=== PATIENT | female | born 1985 | race Caucasian/White ===

== ENCOUNTER 2016-12-29 18:20 | Inpatient (IN) | payer MEDICAID, OTHER ==
[~2016-12-29] VITALS: Ht 160 cm; Wt 76.8 kg
[2016-12-29 21:48] LABS: BASOPHILS % (AUTO) 0.5 % (0.0-2.0); EOSINOPHILS % (AUTO) 1.3 % (1.0-6.0); HEMATOCRIT 44.1 % (36-46); HEMOGLOBIN 14.4 g/dL (12.0-16.0); LYMPHOCYTES # (AUTO) 3.2 K/uL (1.0-4.8); LYMPHOCYTES % (AUTO) 35.8 % (22.0-44.0); MEAN CORPUSCULAR HEMOGLOBIN 30.4 pg (26.0-34.0); MEAN CORPUSCULAR HGB CONC 32.6 G/dL (31.0-37.0); MEAN CORPUSCULAR VOLUME 93 fL (80-100); MONOCYTES # (AUTO) 0.5 K/uL (0.1-1.0); MONOCYTES % (AUTO) 5.8 % (2.0-9.0); NEUTROPHILS # (AUTO) 5.1 K/uL (1.8-7.7); NEUTROPHILS % (AUTO) 56.6 % (40.0-70.0); PLATELET COUNT (AUTO) 272 K/uL (150-450); RED BLOOD CELL COUNT(AUTO) 4.73 MIL/uL (4.00-5.20); RED CELL DISTRIBUTION WIDTH 13.5 % (11.5-14.5)
[2016-12-29 21:57] LABS: ANION GAP 10 mmol/L (8-16); CALCIUM, TOTAL 8.6 mg/dL (8.8-10.5); CARBON DIOXIDE 27 mmol/L (22-29); CHLORIDE 105 mmol/L (98-107); CREATININE 0.86 mg/dL (0.60-1.30); GLOMERULAR FILTR. RATE CALC > 60 mL/min (>60); SODIUM SERUM 142 mmol/L (136-145); UREA NITROGEN, BLOOD 15 mg/dL (7-18)
[2016-12-29 22:02] LABS: ALANINE AMINOTRANSFERASE 20 U/L (12-78); ALBUMIN 3.5 g/dL (3.4-5.0); ASPARTATE AMINOTRANSFERASE 20 U/L (15-37); BILIRUBIN,TOTAL 0.4 mg/dL (0.1-1.0)
[2016-12-29] MEDS ORDERED: LORazepam 2 MG TABLET PO ONE (22:30)
[2016-12-29] MEDS ORDERED: ZOLPIDEM TARTRATE 10 MG TABLET PO PRN (23:30)
[2016-12-29] MEDS ORDERED: HALOPERIDOL 5 MG TABLET PO PRN (23:30)
[2016-12-30 01:13] VITALS: BP 116/75
[2016-12-30] MEDS: LITHIUM CARBONATE 300 MG CAPSULE PO SCH ×2 (10:16→16:43)
[2016-12-30 13:53] VITALS: BP 106/71
[2016-12-30 16:00] VITALS: BP 123/84
[2016-12-30 17:23] VITALS: BP 123/84
[2016-12-30] MEDS ORDERED: ACETAMINOPHEN 325 MG TABLET PO PRN (21:30)
[2016-12-30] MEDS ORDERED: IBUPROFEN 400 MG TABLET PO PRN (21:30)
[2016-12-30] MEDS: LORazepam 2 MG TABLET PO PRN (21:40)
[2016-12-31 07:05] VITALS: BP 121/71
[2016-12-31 08:14] LABS: HEMOGLOBIN A1C 5.2 % (4.5-6.2)
[2016-12-31 08:20] VITALS: BP 101/64
[2016-12-31 08:35] LABS: CHOL/HDL RATIO 2.8 (3.9-5.7); THYROID STIMULATING HORMONE 2.19 uIU/mL (0.36-3.74)
[2016-12-31] MEDS: LITHIUM CARBONATE 300 MG CAPSULE PO SCH ×2 (08:58→16:46)
[2016-12-31 16:36] VITALS: BP 113/78
[2016-12-31] MEDS: LORazepam 2 MG TABLET PO PRN (21:23)
[2017-01-01 05:43] VITALS: BP 121/77
[2017-01-01] MEDS: LITHIUM CARBONATE 300 MG CAPSULE PO SCH (08:35)
[2017-01-01] MEDS ORDERED: LITH300C3 PO (10:18)
== END 2017-01-01 13:00 | disposition home or self-care (01) | DRG 754 ==
LOC: EMS 18:22 → B3A 23:00
PROVIDERS: ADMIT Psychiatry & Neurology Psychiatry; ATTEND Psychiatry & Neurology Psychiatry
DX: F32.9 Major depressive disorder, single episode, unspecified (principal); R45.851 Suicidal ideations; F41.9 Anxiety disorder, unspecified; R00.0 Tachycardia, unspecified; F22 Delusional disorders; Z79.899 Other long term (current) drug therapy; Z85.72 Personal history of non-Hodgkin lymphomas
CPT/HCPCS: 83036; 84443; 99285; G0480

== ENCOUNTER 2017-12-25 17:01 | Emergency (ER) | payer MEDICAID, OTHER ==
[~2017-12-25] VITALS: Ht 160 cm; Wt 75.5 kg
[~2017-12-25 17:01] MED LIST: LITH300C3 PO
[2017-12-25 17:59] LABS: APPEARANCE,URINE CLOUDY (CLEAR); BILIRUBIN,URINE NEGATIVE (NEGATIVE); GLUCOSE, URINE (UA) NEGATIVE (NEGATIVE); KETONES,URINE TRACE mg/dL (NEGATIVE); LEUKOCYTE ESTERASE ,URINE NEGATIVE (NEGATIVE); NITRATE,URINE POSITIVE (NEGATIVE); OCCULT BLOOD,URINE NEGATIVE (NEGATIVE); PROTEIN,URINE NEGATIVE (NEGATIVE); UROBILINOGEN,URINE 0.2 mg/dL (<=1.0)
[2017-12-25 19:10] LABS: BACTERIA,URINE Many /HPF (None Seen); RBC,URINE None Seen /HPF (0-2); WBC,URINE 0-2 /HPF (0-5)
[2017-12-25 19:11] LABS: SQUAMOUS EPITHELIAL CELL,UR Moderate /LPF (None Seen)
[2017-12-25 19:41] VITALS: BP 122/96
[2017-12-25] MEDS ORDERED: CIPROFLOXACIN HCL 250 MG TABLET PO ONE (19:45)
[2017-12-25] MEDS ORDERED: IBUPROFEN 600 MG TABLET PO ONE (19:45)
== END 2017-12-25 19:53 | disposition home or self-care (01) ==
LOC: EMS 17:03
DX: N39.0 Urinary tract infection, site not specified (principal); Z88.2 Allergy status to sulfonamides; Z91.040 Latex allergy status
CPT/HCPCS: 87086; 99284